=== PATIENT | female | born 1960 | race African-American/Black ===

== ENCOUNTER 2024-05-09 19:34 | Emergency (ER) | payer OTHER ==
[2024-05-09] MEDS ORDERED: MECLIZINE HCL 12.5 MG TAB ONE (20:13)
[2024-05-09 20:46] LABS: Absolute Basophils 0.1 K/uL (0-0.5); Absolute Eosinophils 0.2 K/uL (0-0.5); Absolute Lymphocytes (CBC) 2.2 K/uL (0.7-4.9); Absolute Monocytes 0.5 K/uL (0.1-1.3); Absolute Neutrophil 3.1 K/uL (1.8-8.0); Basophils % 1.2 % (0-1.3); Eosinophils % 3.1 % (0-4.4); Hematocrit 40.6 % (36.0-45.0); Hemoglobin 13.4 g/dL (12.0-15.0); Lymphocytes % 35.7 % (15.3-44.8); MCH 28.9 pg (27.0-35.0); MCV 87.7 fL (80-100); MPV 7.3 fL (7.6-11.3); Monocytes % 8.6 % (3.3-12.3); Neutrophils % 51.4 % (41.7-73.7); Nucleated Red Blood Cells % 0.1 % (0-0); Platelets 305 thou/uL (152-406); RBC Red Blood Cell Count 4.63 M/uL (3.86-4.86); Red Cell Distribution Width 12.7 % (12.1-15.2)
--- NOTE | 2024-05-09 20:51 | RAD REPORT ---
Procedure: Chest Single View HISTORY: Chest pain COMPARISON: 2017 FINDINGS: The lungs appear clear of acute infiltrate. No significant pleural effusion noted. The heart is normal size. IMPRESSION: No acute abnormality is displayed.
[2024-05-09 20:59] LABS: Anion Gap 7.4 mEq/L (5.0-15.0); Potassium 3.4 mEq/L (3.5-5.1); Troponin High Sensitivity 5.6 pg/mL (<58.9)
--- NOTE | 2024-05-09 22:23 | RAD REPORT ---
EXAM: CT brain without contrast HISTORY: Dizziness COMPARISON: 2017 TECHNIQUE: Multiple contiguous axial images were obtained and a CT of the brain without contrast.. Sagittal and coronal reconstruction performed. Automated exposure control, adjustment of the mA and/or kV according to patient size, and/or iterative reconstruction. Unless otherwise specified, incidental f indings do not require dedicated imaging follow-u FINDINGS: Due to technical difficulties the exam was not dictated until now. An intracranial bleed is not seen Ventricles are normal caliber No extra-axial fluid collection noted No significant hypodensity within the brain Opacification of the left maxillary sinus, left frontal sinus and most of the left ethmoid sinus IMPRESSION: No acute intracranial abnormality noted. Sinusitis If the patient's symptoms persist MRI of the brain would be recommended.
--- NOTE | 2024-05-09 22:46 | ER ---
Nurse's Notes [facility] Name: Flory Crawford Age: 63 yrs Sex: Female : 1960 Arrival Date: 05/09/2024 Time: 19:34 Bed 13 Private MD: Juventino Denny Diagnosis: Acute ethmoidal sinusitis;Acute maxillary sinusitis;Acute frontal sinusitis;Dizziness and giddiness Presentation: 05/09 19:50 Chief complaint: Patient states: Headache and dizziness onset today. Pt states that she ha1 gets dizzy when she looks down and then back up. Pt reports having a fall from the dizziness. Pt also reports chest pain that radiates down left arm and nausea. Coronavirus screen: Client denies travel out of the [place] in the last 14 days. Ebola Screen: Patient denies travel to an Ebola-affected area in the 21 days before illness onset. Initial Sepsis Screen: Does the patient meet any 2 criteria? No. Patient's initial sepsis screen is negative. Does the patient have a suspected source of infection? No. Patient's initial sepsis screen is negative. Risk Assessment: Do you want to hurt yourself or someone else? Patient reports no desire to harm self or others. Onset of symptoms was May 09, 2024. 19:50 Method Of Arrival: Ambulatory ha1 19:50 Acuity: KERRIE 3 ha1 Triage Assessment: 19:52 General: Appears in no apparent distress. comfortable, Behavior is calm, cooperative. ha1 Neuro: No deficits noted. Level of Consciousness is awake, alert, obeys commands, Oriented to person, place, time, situation, Appropriate for age Reports dizziness, headache. 20:09 Pain: Pain began 1 day ago. Also complains of no other associated symptoms. kj2 22:58 Headache History: Denies prior headaches. kj2 Historical: - Allergies: 19:51 No Known Allergies; ha1 - Home Meds: 22:56 Micardis Oral [Active]; [place] 7.5-325 mg Oral tab [Active]; kj2 - PMHx: 19:51 Hypertension; Borderline DM; ha1 - PSHx: 19:51 Back; ha1 - Immunization history:: Adult Immunizations up to date. - Infectious Disease History:: Denies. - Social history:: Smoking status: Patient denies any tobacco usage or history of. Screenin:55 [facility] ED Fall Risk Assessment (Adult) History of falling in the last 3 months, kj2 including since admission No falls in past 3 months (0 pts) Confusion or Disorientation No (0 pts) Intoxicated or Sedated No (0 pts) Impaired Gait No (0 pts) Mobility Assist Device Used No (0 pt) Altered Elimination No (0 pt) Score/Fall Risk Level 0 - 2 = Low Risk Maintained a safe environment, Hourly rounding (assess needs \T\ fall precautionary measures) done. Abuse screen: Denies threats or abuse. Denies injuries from another. Nutritional screening: No deficits noted. Tuberculosis screening: No symptoms or risk factors identified. Assessment: 19:55 General: Appears in no apparent distress. Behavior is calm, cooperative. Pain: kj2 Complains of pain in headache Pain currently is 7 out of 10 on a pain scale. Neuro: Level of Consciousness is awake, alert, obeys commands, Oriented to person, place, time. Cardiovascular: Patient's skin is warm and dry. Respiratory: Airway is patent Respiratory effort is even, unlabored. GI: No signs and/or symptoms were reported involving the gastrointestinal system. : No signs and/or symptoms were reported regarding the genitourinary system. 20:52 Reassessment: Patient appears in no apparent distress at this time. Patient and/or kj2 family updated on plan of care and expected duration. Pain level reassessed. 22:53 Reassessment: Patient appears in no apparent distress at this time. Patient and/or kj2 family updated on plan of care and expected duration. Pain level reassessed. Patient is alert, oriented x 3, equal unlabored respirations, skin warm/dry/pink. 22:56 Reassessment: provider aware of blood pressures, no new orders at this time. kj2 23:03 Reassessment: provider stated do not need urine. kj2 Vital Signs: 19:50 BP 177 / 76; Pulse 64; Resp 18; Temp 97.9(O); Pulse Ox 98% ; Weight 83.91 kg; Height 5 ha1 ft. 6 in. ; Pain 7/10; 20:00 BP 158 / 85; Pulse 59; Resp 18; Temp 98; Pulse Ox 99% ; kj2 22:51 BP 194 / 90 Standing; Pulse 61 LA; kj2 22:52 BP 183 / 83 Sitting; Pulse 58 LA; kj2 22:52 BP 180 / 84 Supine; Pulse 62; kj2 23:09 Temp 98; kj2 19:50 Body Mass Index 29.86 (83.91 kg, 167.64 cm) ha1 19:50 Pain Scale: Adult ha1 ED Course: 19:38 Patient arrived in ED. gm2 19:38 Juventino Denny MD is Private Physician. gm2 19:38 [facility] sb4 19:38 Brett Ferrell MD is Attending Physician. sb4 19:51 Triage completed. ha1 19:52 Arm band placed on right wrist. Patient placed in an exam room, on a stretcher. ha1 19:55 Patient has correct armband on for positive identification. Call light in reach. kj2 Provided Education on: call light. 20:04 Lorrie Marsh, RN is Primary Nurse. kj2 20:22 CT Head Brain wo Cont In Process Unspecified. EDMS 20:29 Chest Single View XRAY In Process Unspecified. EDMS 20:30 Basic Metabolic Panel Sent. kj2 20:30 CBC with Diff Sent. kj2 20:30 Inserted saline lock: 20 gauge in right antecubital area, using aseptic technique. kj2 Blood collected. Flushed with 10 mL NS. 20:52 Assisted to bathroom. kj2 20:52 No provider procedures requiring assistance completed. kj2 21:04 EKG done, by ED staff, reviewed by Ashlyn Wallis PA-C. oe 22:45 Juventino Denny MD is Referral Physician. sb4 22:54 Assisted to bathroom. kj2 22:58 IV discontinued, intact, bleeding controlled, No redness/swelling at site. Pressure kj2 dressing applied. Administered Medications: 20:29 Drug: Meclizine PO 50 mg PO once Route: PO; kj2 22:45 Follow up: Response: No adverse reaction kj2 23:09 Drug: Amoxicillin-Clavulanate PO 875 mg PO once Route: PO; kj2 23:09 Follow up: Response: No adverse reaction kj2 Medication: 19:55 VIS not applicable for this client. kj2 Outcome: 22:46 Discharge ordered by MD. sb4 22:57 Discharged to home ambulatory, kj2 22:57 Condition: stable 22:57 Discharge instructions given to patient, Instructed on discharge instructions, follow up and referral plans. Demonstrated understanding of instructions, follow-up care, 23:10 Patient left the ED. kj2 Signatures: Dispatcher [employer] EDMS Salvador Crawley Heidy, RN RN ha1 Ashlyn Wallis, PAFigueroa PAYuniorC jose4 Rubina Valdes gm2 Lorrie Marsh RN RN kj2
--- NOTE | 2024-05-09 22:47 | EDPHYS ---
Physician Documentation [facility] Name: Flory Crawford Age: 63 yrs Sex: Female : 1960 Arrival Date: 05/09/2024 Time: 19:34 Bed 13 Private MD: Juventino Denny ED Physician Brett Ferrell HPI: 05/09 19:50 This 63 yrs old Black Female presents to ER via Unassigned with complaints of sb4 Dizziness, Headache. 19:50 The patient presents with dizziness. Onset: The symptoms/episode began/occurred this sb4 morning. Context: just prior to the episode the patient experienced no apparent symptoms. Modifying factors: The symptoms are alleviated by holding head still, the symptoms are aggravated by movement of head, changing position. Associated signs and symptoms: Pertinent positives: headache, nausea. Patient's baseline: Neuro: alert and fully oriented, Motor: no deficits, Ambulation: walks without assistance, Speech: normal. The patient has not experienced similar symptoms in the past. Historical: - Allergies: 19:51 No Known Allergies; ha1 - Home Meds: 22:56 Micardis Oral [Active]; [place] 7.5-325 mg Oral tab [Active]; kj2 - PMHx: 19:51 Hypertension; Borderline DM; ha1 - PSHx: 19:51 Back; ha1 - Immunization history:: Adult Immunizations up to date. - Infectious Disease History:: Denies. - Social history:: Smoking status: Patient denies any tobacco usage or history of. ROS: 19:52 Constitutional: Negative for fever, chills, and weight loss, sb4 19:52 Neuro: Positive for dizziness, headache, 19:52 All other systems are negative, Exam: 19:52 Constitutional: This is a well developed, well nourished patient who is awake, alert, sb4 and in no acute distress. Head/Face: Normocephalic, atraumatic. Eyes: Extra-ocular motions intact. Periorbital areas with no swelling, redness, or edema. ENT: Mucous membranes moist. Cardiovascular: Regular rate and rhythm with a normal S1 and S2. Respiratory: No increased work of breathing, no retractions or nasal flaring. Skin: Warm, dry with normal turgor. Normal color with no rashes, no lesions, and no evidence of cellulitis. MS/ Extremity: Pulses equal, no cyanosis. Neurovascular intact. Full, normal range of motion. Neuro: Awake and alert, GCS 15, oriented to person, place, time, and situation. Motor strength 5/5 in all extremities. Sensory grossly intact. 19:52 Neuro: Gait: is steady, Vital Signs: 19:50 BP 177 / 76; Pulse 64; Resp 18; Temp 97.9(O); Pulse Ox 98% ; Weight 83.91 kg; Height 5 ha1 ft. 6 in. ; Pain 7/10; 20:00 BP 158 / 85; Pulse 59; Resp 18; Temp 98; Pulse Ox 99% ; kj2 22:51 BP 194 / 90 Standing; Pulse 61 LA; kj2 22:52 BP 183 / 83 Sitting; Pulse 58 LA; kj2 22:52 BP 180 / 84 Supine; Pulse 62; kj2 23:09 Temp 98; kj2 19:50 Body Mass Index 29.86 (83.91 kg, 167.64 cm) ha1 19:50 Pain Scale: Adult ha1 MDM: 19:40 Medical Screening Exam initiated sb4 22:45 Data reviewed: vital signs, nurses notes, lab test result(s), EKG, radiologic studies, sb4 and as a result, I will discharge patient. Counseling: I had a detailed discussion with the patient and/or guardian regarding the historical points, exam findings, and any diagnostic results supporting the discharge/admit diagnosis, the presence of at least one elevated blood pressure reading (>120/80) during this emergency department visit, lab results, radiology results, to return to the emergency department if symptoms worsen or persist or if there are any questions or concerns that arise at home. 05/09 19:49 Order name: Basic Metabolic Panel; Complete Time: 20:59 sb4 05/09 19:49 Order name: CBC with Diff; Complete Time: 20:47 sb4 05/09 19:49 Order name: Magnesium; Complete Time: 20:59 sb4 05/09 19:49 Order name: Troponin High Sensitivity; Complete Time: 20:59 sb4 05/09 19:49 Order name: CT Head Brain wo Cont; Complete Time: 22:30 sb4 05/09 19:49 Order name: Chest Single View XRAY; Complete Time: 20:53 sb4 05/09 19:49 Order name: Cardiac monitoring; Complete Time: 22:45 sb4 05/09 19:49 Order name: EKG - Nurse/Tech; Complete Time: 22:45 sb4 05/09 19:49 Order name: IV Saline Lock; Complete Time: 20:29 sb4 05/09 19:49 Order name: Labs collected and sent; Complete Time: 20:29 sb4 05/09 19:49 Order name: O2 Per Protocol; Complete Time: 20:29 sb4 05/09 19:49 Order name: O2 Sat Monitoring; Complete Time: 20:29 sb4 05/09 19:49 Order name: Orthostatics; Complete Time: 22:51 sb4 EC:04 Rate is 59 beats/min. Rhythm is regular, Sinus bradycardia. NV interval is normal at sb4 194 msec. QRS interval is normal at 76 msec. QT interval is normal at 442 msec. No Q waves. T waves are Normal. No ST changes noted. Clinical impression: No evidence of ischemia. Interpreted by me. Reviewed by me. Administered Medications: 20:29 Drug: Meclizine PO 50 mg PO once Route: PO; kj2 22:45 Follow up: Response: No adverse reaction kj2 23:09 Drug: Amoxicillin-Clavulanate PO 875 mg PO once Route: PO; kj2 23:09 Follow up: Response: No adverse reaction kj2 Disposition Summary: 05/09/24 22:46 Discharge Ordered Notes: Location: Home sb4 Problem: new sb4 Symptoms: have improved sb4 Condition: Stable sb4 Diagnosis - Acute ethmoidal sinusitis sb4 - Acute maxillary sinusitis sb4 - Acute frontal sinusitis sb4 - Dizziness and giddiness sb4 Followup: sb4 - With: Juventino Denny MD - When: 1 week - Reason: Recheck today's complaints, Re-evaluation by your physician Discharge Instructions: - Discharge Summary Sheet sb4 - Sinusitis, Adult, Hvis-lf-Djoh sb4 - How to Perform a Sinus Rinse, Rmoa-[id number] sb4 - Dizziness, Auaz-gq-Cenz sb4 Forms: - Antibiotic Education sb4 - Patient Portal Instructions sb4 - Leadership Thank You Letter sb4 Prescriptions: - Augmentin 875-125 mg Oral tablet - take 1 tablet ORAL route every 12 hours for 7 days; 14 tablet; Refills: 0, sb4 Product Selection Permitted Addendum: 05/11/2024 17:52 I was immediately available for consultation during this patient's visit. I did not e c2 personally see the patient or discuss the patient with the ALISIA. . Signatures: Dispatcher [employer] Clarisa Mays, RN RN ha1 Ashlyn Wallis, PAYuniorC PAYuniorC sb4 Brett Ferrell MD MD ec2 Lorrie Marsh RN RN kj2 Corrections: (The following items were deleted from the chart) 05/09 19:49 19:49 NPO ordered. sb4 sb4 19:50 19:49 BASIC METABOLIC PANEL+C.LAB.BRZ ordered. EDMS EDMS 19:50 19:49 CBC+H.LAB.BRZ ordered. EDMS EDMS 19:50 19:49 MAGNESIUM+C.LAB.BRZ ordered. EDMS EDMS 19:50 19:49 Troponin High Sensitivity+C.LAB.BRZ ordered. EDMS EDMS 19:50 19:49 URINE DRUG SCREEN+UC.LAB.BRZ ordered. EDMS EDMS 19:50 19:49 Urinalysis+U.LAB.BRZ ordered. EDMS EDMS
[2024-05-09] MEDS ORDERED: AMOX/K CLAV 875 MG TAB ONE (23:06)
[2024-05-09 23:34] VITALS: TEMP 98; O2SAT 99
[2024-05-09 23:36] VITALS: BP 180/84
--- NOTE | 2024-05-13 12:22 | EKG ---
Test Date: 2024-05-09 Test Time: 20:59:37 Team Driver: GERALDO MEASUREMENT RESULTS: Intervals: Rate: 59 ME: 194 QRSD: 76 QT: 442 QTc: 437 Taylor: P: 46 ME: 194 QRS: 64 T: 69 INTERPRETIVE STATEMENTS: Sinus bradycardia Otherwise normal ECG Compared to ECG 07/25/2016 06:40:30 Sinus rhythm no longer present Electronically Signed On 05-13-24 12:17:27 BROADCAST JOURNALIST by Robert Pelletier
== END 2024-05-09 23:10 | disposition home or self-care (01) ==
LOC: ER 19:34
DX: J01.20 Acute ethmoidal sinusitis, unspecified (principal); J01.00 Acute maxillary sinusitis, unspecified; J01.10 Acute frontal sinusitis, unspecified; I10 Essential (primary) hypertension
CPT/HCPCS: 93005; 85025; 80048; 36415; 83735; 84484; 70450; 71045; 99284; J8597

== ENCOUNTER 2024-09-15 17:20 | Emergency (ER) | payer OTHER ==
[2024-09-15] MEDS ORDERED: ONDANSETRON 4 MG/2 ML VIAL ONE (18:06)
[2024-09-15] MEDS ORDERED: NA CHLORIDE 0.9% 1,000 ML ONE (18:06)
[2024-09-15] MEDS ORDERED: MORPHINE 4 MG/ML SYR ONE (18:06)
[2024-09-15 18:41] LABS: Absolute Basophils 0.1 K/uL (0-0.5); Absolute Eosinophils 0.2 K/uL (0-0.5); Absolute Lymphocytes (CBC) 2.1 K/uL (0.7-4.9); Absolute Monocytes 0.4 K/uL (0.1-1.3); Absolute Neutrophil 4.8 K/uL (1.8-8.0); Hematocrit 46.4 % (36.0-45.0); Hemoglobin 15.3 g/dL (12.0-15.0); Lymphocytes % 28.2 % (15.3-44.8); MCH 28.9 pg (27.0-35.0); MCHC 32.9 g/dL (32.0-36.0); MCV 87.8 fL (80-100); MPV 7.3 fL (7.6-11.3); Monocytes % 5.5 % (3.3-12.3); Neutrophils % 63.3 % (41.7-73.7); Nucleated Red Blood Cells % 0.1 % (0-0); Platelets 384 thou/uL (152-406); RBC Red Blood Cell Count 5.28 M/uL (3.86-4.86); Red Cell Distribution Width 12.4 % (12.1-15.2)
[2024-09-15 18:50] LABS: Specific Gravity > 1.030 (1.005-1.030); Urine Bacteria <20 /HPF (<20); Urine Bilirubin NEGATIVE (Negative); Urine Blood Trace (Negative); Urine Clarity Extremely Turbid (Clear); Urine Color Yellow (Yellow); Urine Culture Reflex Order REFLEXED; Urine Glucose NEGATIVE (Negative); Urine Ketones NEGATIVE (Negative); Urine Microscopic Reflex YN ORDER UMIC; Urine Mucus 4+ /HPF (None Seen); Urine Nitrite NEGATIVE (Negative); Urine Protein 1+ (Negative); Urine Urobilinogen Normal (Normal); Urine WBC >50 /HPF (<5); Urine pH 5.5 (5.0-7.0)
[2024-09-15 18:56] LABS: Albumin 4.6 g/dL (3.4-5.0); Albumin/Globulin Ratio 1.1 (1.1-1.8); Anion Gap 9.2 mEq/L (5.0-15.0); Bilirubin Total 0.7 mg/dL (0.2-1.0); Globulin 4.2 g/dL (2.3-3.5); Potassium 3.2 mEq/L (3.5-5.1); Protein, Total 8.8 g/dL (6.4-8.2)
--- NOTE | 2024-09-15 19:26 | RAD REPORT ---
EXAMINATION: CT ABDOMEN AND PELVIS WITH CONTRAST CLINICAL INDICATION: Abdominal pain TECHNIQUE: CT abdomen and pelvis was performed, after the administration of 100 cc Isovue-300.. Sagit roosevelt and coronal reconstructions were obtained. One or more of the following dose reduction techniques were used: Automated exposure control, adjustment of the mA and kV according to patient si ze, and iterative reconstruction. Unless otherwise specified, incidental findings do not require dedicated imaging follow-up. [id number]. Oral contrast was not given which limits evaluation of bowel and appendix. COMPARISON: .2019 FINDINGS: Cholecystectomy. Liver, spleen, pancreas, adrenals and kidneys appear unremarkable No evidence of diverticulitis. Fluid throughout large and small bowel.. Cecum mildly distended measur ing 8 cm. No adnexal mass : IMPRESSION: Fluid throughout large and small bowel may indicate an enteritis.. Cecum mildly distended measuring 8 cm.
--- NOTE | 2024-09-15 20:00 | EDPHYS ---
Physician Documentation [facility] Name: Flory Crawford Age: 64 yrs Sex: Female : 1960 Arrival Date: 09/15/2024 Time: 17:20 Bed 20 Private MD: ED Thaddeus Javed HPI: 09/15 17:42 This 64 yrs old Black Female presents to ER via Ambulatory with complaints of Abdominal sb4 Pain. 17:42 The patient presents with abdominal pain in the periumbilical area. Onset: The sb4 symptoms/episode began/occurred yesterday. The symptoms do not radiate. Associated signs and symptoms: Pertinent positives: diarrhea, nausea. The patient has not experienced similar symptoms in the past. The patient has not recently seen a physician. Historical: - Allergies: 17:36 No Known Allergies; db - PMHx: 17:36 borderline DM; Hypertension; db - PSHx: 17:36 back; db - Immunization history:: Adult Immunizations unknown. - Infectious Disease History:: Denies. - Social history:: Smoking status: Patient denies any tobacco usage or history of. ROS: 17:42 Constitutional: Negative for fever, chills, and weight loss, sb4 17:42 Abdomen/GI: Positive for abdominal pain, diarrhea, 17:42 All other systems are negative, Exam: 17:42 Head/Face: Normocephalic, atraumatic. Eyes: Extra-ocular motions intact. Periorbital sb4 areas with no swelling, redness, or edema. ENT: Mucous membranes moist. Cardiovascular: Regular rate and rhythm with a normal S1 and S2. Respiratory: No increased work of breathing, no retractions or nasal flaring. Skin: Warm, dry with normal turgor. Normal color with no rashes, no lesions, and no evidence of cellulitis. 17:42 Constitutional: The patient appears alert, awake, uncomfortable, 17:42 Abdomen/GI: Inspection: abdomen appears normal, Bowel sounds: normal, Palpation: soft, mild abdominal tenderness, in the umbilical area, suprapubic area and right lower quadrant, Vital Signs: 17:35 BP 121 / 75; Pulse 67; Resp 16; Temp 97.3; Pulse Ox 100% ; Weight 81.65 kg; Height 5 db ft. 6 in. ; 18:34 BP 131 / 62; Pulse 62; Resp 16 S; Pulse Ox 98% on R/A; Pain 10/10; kc6 19:19 BP 129 / 82; Pulse 65; Resp 17 S; Pulse Ox 98% on R/A; ha1 20:33 BP 118 / 68; Pulse 61; Resp 17 S; Pulse Ox 98% on R/A; ha1 17:35 Body Mass Index 29.05 (81.65 kg, 167.64 cm) db 18:34 Pain Scale: Adult kc6 MDM: 17:37 Medical Screening Exam initiated sb4 19:59 Data reviewed: vital signs, nurses notes, lab test result(s), radiologic studies, and sb4 as a result, I will discharge patient. Counseling: I had a detailed discussion with the patient and/or guardian regarding the historical points, exam findings, and any diagnostic results supporting the discharge/admit diagnosis, lab results, radiology results, the need for outpatient follow up, for definitive care, to return to the emergency department if symptoms worsen or persist or if there are any questions or concerns that arise at home. 09/15 17:42 Order name: CBC with Diff; Complete Time: 18:44 sb4 09/15 17:42 Order name: CMP; Complete Time: 18:57 sb4 09/15 17:42 Order name: Lipase; Complete Time: 18:57 sb4 09/15 17:42 Order name: Urinalysis w/ reflexes; Complete Time: 18:57 sb4 09/15 18:59 Order name: Urine Culture EDTN 09/15 17:42 Order name: CT Abd/Pelvis - IV Contrast Only; Complete Time: 19:30 sb4 09/15 17:42 Order name: IV Saline Lock; Complete Time: 18:33 sb4 09/15 17:42 Order name: Labs collected and sent; Complete Time: 18:33 sb4 09/15 19:33 Order name: PO challenge; Complete Time: 19:57 sb4 Administered Medications: 18:33 Drug: Ondansetron IVP 4 mg IVP once; over 2 minutes Route: IVP; Site: right antecubital;kc6 19:12 Follow up: Response: No adverse reaction; Nausea is decreased kc6 18:33 Drug: morphine IVP or IV 4 mg IVP once over 4 mins Route: IVP; Infused Over: 4 mins; kc6 Site: right antecubital; 19:12 Follow up: Response: No adverse reaction; Pain is decreased; RASS: Alert and Calm (0) kc6 18:33 Drug: NS 0.9% IV 1000 ml IV at 1 bolus Per protocol; to be given as a bolus over 60 kc6 minutes Route: IV; Rate: 1 bolus; Site: right antecubital; 19:12 Follow up: Response: No adverse reaction; IV Status: Completed infusion; IV Intake: kc6 1000ml 20:00 Drug: Loperamide PO 4 mg PO once Route: PO; ha1 20:37 Follow up: Response: No adverse reaction; Marked relief of symptoms ha1 20:00 Drug: Dicyclomine PO 20 mg PO once Route: PO; ha1 20:36 Follow up: Response: No adverse reaction; Marked relief of symptoms ha1 20:00 Drug: Ketorolac IVP 15 mg IVP once Route: IVP; Site: right antecubital; ha1 20:36 Follow up: Response: No adverse reaction; Marked relief of symptoms; Pain is decreased ha1 20:05 Drug: Rocephin IV 1 grams IV at calculated rate once; Given slow IV push per pharmacy ha1 instructions Route: IV; Rate: calculated rate; Site: right antecubital; 20:37 Follow up: Response: No adverse reaction; IV Status: Completed infusion; IV Intake: [id number] Disposition Summary: 09/15/24 19:59 Discharge Ordered Notes: Location: Home sb4 Problem: new sb4 Symptoms: have improved sb4 Condition: Stable sb4 Diagnosis - Other viral enteritis sb4 - UTI/ Urinary tract infection, site not specified sb4 Followup: sb4 - With: Private Physician - When: 1 week - Reason: Recheck today's complaints, Re-evaluation by your physician Discharge Instructions: - Discharge Summary Sheet sb4 - Food Choices to Help Relieve Diarrhea, Adult sb4 - Viral Gastroenteritis, Adult, Fwrv-dx-Rett sb4 - Urinary Tract Infection, Adult, Lecy-zf-Nvmy sb4 Forms: - Antibiotic Education sb4 - Patient Portal Instructions sb4 - Leadership Thank You Letter sb4 Prescriptions: - loperamide 2 mg Oral capsule - take 1 capsule ORAL route every 2 hours as needed for loose stool; until sb4 patient has gone 12 hours without a bowel movement; 10 capsule; Refills: 0, Product Selection Permitted - Macrobid 100 mg Oral Capsule - take 1 capsule ORAL route every 12 hours for 7 days; 14 capsule; Refills: 0, sb4 Product Selection Permitted - dicyclomine 10 mg Oral capsule - take 1 capsule ORAL route 3 times per day PRN abdominal cramps; 12 capsule; sb4 Refills: 0, Product Selection Permitted Signatures: Dispatcher [employer] EDMS Clarisa Townsend RN RN ha1 Areli Almendarez RN RN kc6 Tiesha Harper RN RN Ashlyn Mon PA-Julio Cesar PA-Julio Cesar sb4 Corrections: (The following items were deleted from the chart) 17:42 17:42 CBC+H.LAB.BRZ ordered. EDMS EDMS 17:42 17:42 COMPREHENSIVE METABOLIC PANEL+C.LAB.BRZ ordered. EDMS EDMS 17:43 17:42 LIPASE+C.LAB.BRZ ordered. EDMS EDMS 17:43 17:42 Urinalysis+U.LAB.BRZ ordered. EDMS EDMS
--- NOTE | 2024-09-15 20:00 | ER ---
Nurse's Notes [facility] Name: Flory Crawford Age: 64 yrs Sex: Female : 1960 Arrival Date: 09/15/2024 Time: 17:20 Bed 20 Private MD: Diagnosis: Other viral enteritis;UTI/ Urinary tract infection, site not specified Presentation: 09/15 17:35 Chief complaint: Patient states: MIDDLE ABD PAIN WITH DIARRHEA SYMPTOMS STARTED db YESTERDAY. Coronavirus screen: Client denies travel out of the [place] in the last 14 days. At this time, the client does not indicate any symptoms associated with coronavirus-19. Ebola Screen: Patient negative for fever greater than or equal to 101.5 degrees Fahrenheit, and additional compatible Ebola Virus Disease symptoms Patient denies exposure to infectious person. Patient denies travel to an Ebola-affected area in the 21 days before illness onset. No symptoms or risks identified at this time. Initial Sepsis Screen: Does the patient meet any 2 criteria? No. Patient's initial sepsis screen is negative. Does the patient have a suspected source of infection? No. Patient's initial sepsis screen is negative. Risk Assessment: Do you want to hurt yourself or someone else? Patient reports no desire to harm self or others. Onset of symptoms was September 15, 2024. 17:35 Method Of Arrival: Ambulatory db 17:35 Acuity: KERRIE 3 db Triage Assessment: 17:36 General: Appears in no apparent distress. uncomfortable, Behavior is calm, cooperative. db Pain: Complains of pain in abdomen. Respiratory: Airway is patent Respiratory effort is even, unlabored, Respiratory pattern is regular, symmetrical. GI: Abdomen is distended, Reports lower abdominal pain, upper abdominal pain, diarrhea, nausea. Historical: - Allergies: 17:36 No Known Allergies; db - PMHx: 17:36 borderline DM; Hypertension; db - PSHx: 17:36 back; db - Immunization history:: Adult Immunizations unknown. - Infectious Disease History:: Denies. - Social history:: Smoking status: Patient denies any tobacco usage or history of. Screenin:34 [facility] ED Fall Risk Assessment (Adult) History of falling in the last 3 months, kc6 including since admission No falls in past 3 months (0 pts) Confusion or Disorientation No (0 pts) Intoxicated or Sedated No (0 pts) Impaired Gait No (0 pts) Mobility Assist Device Used No (0 pt) Altered Elimination No (0 pt) Score/Fall Risk Level 0 - 2 = Low Risk Oriented to surroundings, Maintained a safe environment, Educated pt \T\ family on fall prevention, incl call for assistance when getting out of bed. Abuse screen: Denies threats or abuse. Denies injuries from another. Nutritional screening: No deficits noted. Tuberculosis screening: No symptoms or risk factors identified. Assessment: 18:34 General: Appears in no apparent distress. comfortable, well groomed, well developed, kc6 Behavior is calm, cooperative, appropriate for age, quiet. Pain: Complains of pain in epigastric area, umbilical area, right upper quadrant and right lower quadrant Pain does not radiate. Pain currently is 10 out of 10 on a pain scale. Neuro: Level of Consciousness is awake, alert, obeys commands, Oriented to person, place, time, situation, Appropriate for age Reports dizziness. Cardiovascular: Capillary refill < 3 seconds. Respiratory: Airway is patent Trachea midline Respiratory effort is even, unlabored, Respiratory pattern is regular, symmetrical. GI: Abdomen is round non-distended, Last BM was September 15, 2024. Bowel sounds hyperactive in right upper quadrant, left upper quadrant, right lower quadrant and left lower quadrant Abd is soft X 4 quads Abdomen is tender to palpation in epigastric area, umbilical area, right upper quadrant and right lower quadrant Reports lower abdominal pain, upper abdominal pain, diarrhea, Patient currently denies nausea, vomiting. : No signs and/or symptoms were reported regarding the genitourinary system. Urine is clear. EENT: No signs and/or symptoms were reported regarding the EENT system. Derm: No signs and/or symptoms reported regarding the dermatologic system. Skin is intact, is healthy with good turgor, Skin is pink, warm \T\ dry. Musculoskeletal: No signs and/or symptoms reported regarding the musculoskeletal system. Circulation, motion, and sensation intact. Range of motion: intact in all extremities. 19:19 Reassessment: Patient and/or family updated on plan of care and expected duration. Pain ha1 level reassessed. Patient is alert, oriented x 3, equal unlabored respirations, skin warm/dry/pink. Patient states feeling better. Patient states symptoms have improved. 20:33 Reassessment: Patient and/or family updated on plan of care and expected duration. Pain ha1 level reassessed. Patient is alert, oriented x 3, equal unlabored respirations, skin warm/dry/pink. PAIN 3/10 Patient states feeling better. Patient states symptoms have improved. Vital Signs: 17:35 BP 121 / 75; Pulse 67; Resp 16; Temp 97.3; Pulse Ox 100% ; Weight 81.65 kg; Height 5 db ft. 6 in. ; 18:34 BP 131 / 62; Pulse 62; Resp 16 S; Pulse Ox 98% on R/A; Pain 10/10; kc6 19:19 BP 129 / 82; Pulse 65; Resp 17 S; Pulse Ox 98% on R/A; ha1 20:33 BP 118 / 68; Pulse 61; Resp 17 S; Pulse Ox 98% on R/A; ha1 17:35 Body Mass Index 29.05 (81.65 kg, 167.64 cm) db 18:34 Pain Scale: Adult [facility] ED Course: 17:21 Patient arrived in ED. im 17:36 Triage completed. db 17:36 Arm band placed on Patient placed in an exam room. db 17:37 Ashlyn Wallis PA-C is PHCP. sb4 17:37 Thaddeus Carrillo MD is Attending Physician. sb4 18:02 Areli Almendarez, ADAM is Primary Nurse. kc6 18:34 Patient has correct armband on for positive identification. Placed in gown. Bed in low kc6 position. Call light in reach. Side rails up X 1. Adult w/ patient. Pulse ox on. NIBP on. Door closed. Noise minimized. Lights dimmed. Warm blanket given. Pillow given. Verbal reassurance given. 18:34 No provider procedures requiring assistance completed. Inserted saline lock: 20 gauge kc6 in right antecubital area, using aseptic technique. Blood collected. Flushed with 10 mL NS. Patient maintains SpO2 saturation greater than 95% on room air. 19:13 Report given to Clarisa Townsend RN. [facility] 19:19 CT Abd/Pelvis - IV Contrast Only In Process Unspecified. EDMS 20:34 Provided Education on: FOLLOW UPS AND MEDICATION ADMINISTRATION . ha1 20:34 IV discontinued, intact, bleeding controlled, No redness/swelling at site. Pressure ha1 dressing applied. Administered Medications: 18:33 Drug: Ondansetron IVP 4 mg IVP once; over 2 minutes Route: IVP; Site: right antecubital;kc6 19:12 Follow up: Response: No adverse reaction; Nausea is decreased 6 18:33 Drug: morphine IVP or IV 4 mg IVP once over 4 mins Route: IVP; Infused Over: 4 mins; kc6 Site: right antecubital; 19:12 Follow up: Response: No adverse reaction; Pain is decreased; RASS: Alert and Calm (0) 6 18:33 Drug: NS 0.9% IV 1000 ml IV at 1 bolus Per protocol; to be given as a bolus over 60 kc6 minutes Route: IV; Rate: 1 bolus; Site: right antecubital; 19:12 Follow up: Response: No adverse reaction; IV Status: Completed infusion; IV Intake: kc6 1000ml 20:00 Drug: Loperamide PO 4 mg PO once Route: PO; ha1 20:37 Follow up: Response: No adverse reaction; Marked relief of symptoms ha1 20:00 Drug: Dicyclomine PO 20 mg PO once Route: PO; ha1 20:36 Follow up: Response: No adverse reaction; Marked relief of symptoms ha1 20:00 Drug: Ketorolac IVP 15 mg IVP once Route: IVP; Site: right antecubital; ha1 20:36 Follow up: Response: No adverse reaction; Marked relief of symptoms; Pain is decreased ha1 20:05 Drug: Rocephin IV 1 grams IV at calculated rate once; Given slow IV push per pharmacy ha1 instructions Route: IV; Rate: calculated rate; Site: right antecubital; 20:37 Follow up: Response: No adverse reaction; IV Status: Completed infusion; IV Intake: [id number] Medication: 20:34 VIS not applicable for this client. ha1 Intake: 19:12 IV: 1000ml; Total: 1000ml. kc6 20:37 IV: 50ml; Total: 1050ml. ha1 Outcome: 19:59 Discharge ordered by . sb4 20:33 Discharged to home ambulatory, with family, ha1 20:33 Condition: stable 20:33 Discharge instructions given to patient, family, Instructed on discharge instructions, follow up and referral plans. medication usage, Demonstrated understanding of instructions, follow-up care, medications, Prescriptions given X 3, 20:38 Patient left the ED. ha1 Signatures: Dispatcher [employer] EDMS Clarisa Townsend RN RN ha1 Areli Almendarez RN RN kc6 Tiesha Harper RN Ashlyn Mauricio, PA-C PA-C sb4 Kirsten Jones
[2024-09-15] MEDS ORDERED: LOPERAMIDE HCL 2 MG CAPSULE ONE (20:03)
[2024-09-15] MEDS ORDERED: KETOROLAC 30 MG/ML INJ ONE (20:03)
[2024-09-15] MEDS ORDERED: CEFTRIAXONE 1000 MG/VIAL ONE (20:03)
[2024-09-15] MEDS ORDERED: DICYCLOMINE HCL 10 MG CAP ONE (20:03)
[2024-09-15 21:18] VITALS: TEMP 97.3
[2024-09-15 21:20] VITALS: O2SAT 98
[2024-09-15 21:22] VITALS: BP 118/68
== END 2024-09-15 20:38 | disposition home or self-care (01) ==
LOC: ER 17:20
DX: A08.39 Other viral enteritis (principal); N39.0 Urinary tract infection, site not specified
CPT/HCPCS: 87088; 85025; 81001; 87086; 36415; 83690; 80053; 74177; Q9967; J2405; J7030; J0696; 96361; 96365; 96375; 99284